=== PATIENT | female | born 1975 | race African-American/Black ===

== ENCOUNTER 2021-12-14 09:40 | Outpatient (CLI) | payer OTHER, SELFPAY ==
--- NOTE | ~2021-12-14 | US_ITS ---
EXAMINATION: US abdomen limited EXAM DATE: 12/14/2021 10:00 INDICATION: Abdominal pain, nausea. TECHNIQUE: Multiple grayscale and Doppler images of the abdomen right upper quadrant were obtained (b y a technologist who performed the scan) and subsequently reviewed. There is no prior study for ronal cheng. FINDINGS: The pancreatic head and body are normal in appearance. The pancreatic tail is not visualized. The l iver has normal echogenicity and contour. There are no focal liver lesions identified. There is no evidence of intrahepatic biliary duct dilation. Portal venous flow was seen in the hepatopedal, nor mal direction and has normal Doppler waveform. No right-sided hydronephrosis. Common bile duct measures 5 mm, which is normal. The gallbladder wall is normal in thickness, with ex pected amount of distention. No sonographic evidence of pericholecystic fluid. There is no cholelit hiases. Technologist performing exam reports patient did not demonstrate sonographic Oliva's sign. Please note that this sign is less reliable in patients who have received pain medication. IMPRESSION: Unremarkable abdominal ultrasound exam. Reviewed, dictated and finalized at location G. [facility]
== END 2021-12-14 09:41 | disposition home or self-care (01) ==
PROVIDERS: PCP Internal Medicine; Visit Provider Internal Medicine
DX: R10.13 Epigastric pain (principal)
CPT/HCPCS: 76705

== ENCOUNTER 2022-07-07 00:39 | Day surgery (SDC) | payer OTHER, SELFPAY ==
[2022-06-30 12:56] VITALS: BMI 32.4
--- NOTE | 2022-06-30 13:05 | PC.NURSE ---
Report to the Outpatient Waiting Room, entrance under the green pavilion located off [facility], at time 0600 on date 07/07/22. OR Time: 0730. Time changes happen often and if your time is changed the preop area will call you the afternoon before. - You and your visitor will be asked to self-screen and do not enter if you have any COVID symptoms. - Only one visitor and NO children visitors are allowed at this time. - The patient visitor is requested to leave or wait in car when not with patient due to restrictions. - A mask is required within the hospital. Patients may have clear liquids (water, carbonated beverages, clear teas, apple juice) until 3 hours prior to surgery with a maximum of 20 ounces. - No food from midnight until time of surgery Take the following medications with a SIP of water the morning of surgery: NONE Medications to discontinue per physician: VITAMINS/SUPPLEMENTS Date to take last dose: 07/03/22 Please no make-up, nail moldovan, hairspray, perfume, deodorant, or body powder the day of surgery. No jewelry (including any body piercings) or valuables the day of surgery, leave them at home. Please take a shower or bath the night before, or the morning of, surgery with an antibacterial soap. Wear comfortable, loose fitting clothing. - Jewelry must be removed prior to entering the operating room. Rings and piercings that are not removed may be cut off. - The hospital will not accept responsibility for valuables. - Please leave all valuables, including medications, at home the day of surgery. If you are going home after surgery, a licensed emergency detail driver must drive you home. - NO public transportation without another adult. - We recommend that an adult stay with you for 24 hours following discharge. - We also recommend that you do not drive, make important decision, drink alcoholic beverages, or take any drugs that were not prescribed by your health care provider for at least 24 hours after your discharge time. Follow any additional instructions given to you from your surgeon. If you or anyone in your household have experienced Covid symptoms in the past week, please notify your surgeon or the nurse liaison at the phone number below for possible testing. Telephone instructions given to PT - DEIDRA FAM and asked if any additional questions and then verbalized understanding. Patient advised to call surgeon office or pre surgery nurse liaison [phone] if any additional questions.
--- NOTE | 2022-07-06 18:28 | WPDANESEPPF ---
Anes - Initial Pre Proc Eval Procedure: Operation Date: 07/07/22 07:30 Proposed Procedures p Right Open Carpal Tunnel Release - Rogers Rodriguez MD Date/Time: 07/06/22 18:28 Surgeon: Rogers Rodriguez MD Pre Op Diagnosis: Right Carpal Tunnel Syndrome Patient Data Age: 47 Gender: F Height: 1.65 m Weight: 88.45 kg Allergies Allergy/AdvReac Type Severity Reaction Status Date / Time No Known Allergies Allergy Verified 06/30/22 12:55 Home Medications Medication Instructions Recorded Confirmed Type cholecalciferol (vitamin D3) 25 25 mcg PO DAILY 06/03/20 06/30/22 History mcg (1,000 unit) capsule metoprolol tartrate 50 mg tablet 50 mg PO DAILY 07/07/21 06/30/22 History (Lopressor) melatonin 10 mg tablet 10 mg PO HS PRN Insomnia 06/30/22 06/30/22 History Patient hx anesthesia problems: none Family hx anesthesia problems: none Results Review: All pre-operative results and documents have been reviewed as part of the pre-operative evaluation. [facility] Past Medical History Medical History (Updated 07/06/22 @ 18:29 by Fletcher Guzman DO) Abdominal pain APC (atrial premature contractions) BMI 28.0-28.9,adult BMI 30.0-30.9,adult Dyslipidemia Exposure to COVID-19 virus Follow up Ganglion cyst Glaucoma Hypertension Numbness and tingling in both hands Pre-diabetes Tinnitus Surgical History Surgical History H/O prior ablation treatment Family History Family History Mother Hypertension Family history of lymphoma Father Family history of dementia Social History Social History Smoking status: Never smoker Alcohol intake: current Drinks per week: 1 Substance use: never Substance use type: does not use Living arrangements: alone Spiritual care concerns: No Anes - Eval Final PreProcedure Day of Procedure 07/06/22 18:28 Patient weight: obese Heart: regular rate and rhythm Lungs: clear to auscultation Airway: Mallampati scale class II Neurological: alert and oriented Last oral intake: >/= 8 hours ASA classification: II Emergent: no Anesthetic plan: proceed Anesthesia type and monitoring: general GIVS and standard monitoring Results Review: All pre-operative results and documents have been reviewed as part of the pre-operative evaluation. Informed Consent: The patient's anesthetic plan and its attendant risks and benefits were discussed with the patient/family/POA. Questions were solicited and answers provided to the satisfaction of the patient/family/POA.
[2022-07-07] MEDS: LACTATED RINGERS 1,000 ML 30 ML IV CONT (06:28)
[2022-07-07 06:29] VITALS: BP 98/51; PULSE 68; RESP 16; TEMP 36.9; O2SAT 99
--- NOTE | 2022-07-07 07:20 | WPDHPUPDATE1 ---
History and Physical Update Update Date/Time: 07/07/22 07:20 History and Physical has been reviewed, including an updated exam of the patient. There are NO changes in the patient's condition. Risks, benefits, and alternatives have been discussed and questions answered. Patient agrees to proceed with procedure.
[2022-07-07] MEDS: LIDO 1%/EPINEPHRINE 1:100,000 50 ML VIAL INFILTRATE (07:51)
[2022-07-07 07:58] VITALS: BP 99/69; PULSE 76; RESP 12; O2SAT 99
--- NOTE | 2022-07-07 08:05 | W.PM.PROC2 ---
Procedure Note - Detailed Date of Procedure 07/07/22 Pre-op Diagnosis Right Carpal Tunnel Syndrome Post-op Diagnosis Same Procedure Performed Right open carpal tunnel release Surgeon Rogers Rodriguez MD Anesthesia MAC Description of Procedure The right carpal tunnel was marked on the patient waiting in the holding area. She was taken to the operating room where she was placed supine on the operating table. Time-out was held confirmed. Extremity was prepped and draped in usual fashion. She was given IV sedation. The site was remarked on the patient's palm and locally infiltrated with 1% lidocaine with epinephrine. The tourniquet was inflated to 250 mmHg. Incision was made as marked. Dissection was carried bluntly through the subcutaneous tissue to the palmar aponeurosis. This and the transverse carpal retinaculum was incised with a 15. Blade. Under 3 point retraction the retinaculum was divided distally and proximally to completely release it. No unusual anatomy was noted. The skin was closed with interrupted 5 0 nylon suture and the tourniquet released. The usual bandage was applied and she was discharged from the operating room stable condition Tourniquet Time 8 Drains No Packing No Pathology None sent Complications No immediate complications Condition Stable Disposition Same day
[2022-07-07 08:20] VITALS: BP 97/67; PULSE 78; RESP 20
[2022-07-07 08:50] VITALS: BP 96/67; PULSE 68; RESP 20
[2022-07-07 09:00] VITALS: BP 102/72; PULSE 68; RESP 20
== END 2022-07-07 09:10 | disposition home or self-care (01) ==
PROVIDERS: PCP Internal Medicine; Visit Provider Plastic Surgery
PROC: (CPT 64721; principal; 2022-07-07 07:30)
DX: G56.01 Carpal tunnel syndrome, right upper limb (principal); I10 Essential (primary) hypertension; E78.5 Hyperlipidemia, unspecified; R73.03 Prediabetes; H40.9 Unspecified glaucoma; E66.9 Obesity, unspecified; Z68.33 Body mass index [BMI] 33.0-33.9, adult
CPT/HCPCS: 64721; A9270; J1940; J2250; J2405; J2704; J3010; J7120

== ENCOUNTER 2022-07-28 02:11 | Day surgery (SDC) | payer OTHER, SELFPAY ==
[2022-07-25 08:53] VITALS: BMI 32.5
--- NOTE | 2022-07-25 09:01 | PC.NURSE ---
Report to the Outpatient Waiting Room, entrance under the green pavilion located off [facility], at time ____929___ on date __07/28/22 . OR Time: ___1129 . Time changes happen often and if your time is changed the preop area will call you the afternoon before. - You and your visitor will be asked to self-screen and do not enter if you have any COVID symptoms. - We encourage only one visitor and NO visitors under age 16 are allowed at this time. Your visitor will receive communication by the phone number that is given day of service. - The patient visitor is requested to social distance or may leave the building when not with patient due to restrictions. - A mask is required within the hospital. Patients may have clear liquids (water, carbonated beverages, clear teas, apple juice) until 3 hours prior to surgery with a maximum of 20 ounces. - No food from midnight until time of surgery - Infants may have breast milk until 4 hours before surgery, formula 6 hours prior to surgery. - Children will be allowed to drink immediately following surgery. If applicable, please bring a bottle or sippy cup to assist with drinking. Juice, water, soda, and popsicles are readily available. For infants on formula, please bring formula the day of surgery. Pacifiers are allowed. Take the following medications with a SIP of water the morning of surgery: ____n/a Medications to discontinue per physician n/a Date to take last dose Please no make-up, nail arabic, hairspray, perfume, deodorant, or body powder the day of surgery. No jewelry (including any body piercings) or valuables the day of surgery, leave them at home. Please take a shower or bath the night before, or the morning of, surgery with an antibacterial soap. Wear comfortable, loose fitting clothing. Children are encouraged to wear pajamas. - Jewelry must be removed prior to entering the operating room. Rings and piercings that are not removed may be cut off. - The hospital will not accept responsibility for valuables. - Please leave all valuables, including medications, at home the day of surgery. If you are going home after surgery, a licensed port cdl a driver must drive you home. - NO public transportation without another adult. - We recommend that an adult stay with you for 24 hours following discharge. - We also recommend that you do not drive, make important decision, drink alcoholic beverages, or take any drugs that were not prescribed by your health care provider for at least 24 hours after your discharge time. For Pediatric surgeries, we recommend two adults accompany the child home. Follow any additional instructions given to you from your surgeon. If you or anyone in your household have experienced Covid symptoms in the past week, please notify your surgeon or the nurse liaison at the phone number below for possible testing. Telephone instructions given to ____patient and asked if any additional questions and then verbalized understanding. Patient advised to call surgeon office or pre surgery nurse liaison [phone] if any additional questions.
--- NOTE | 2022-07-28 07:14 | WPDHPUPDATE1 ---
History and Physical Update Update Date/Time: 07/28/22 07:14 History and Physical has been reviewed, including an updated exam of the patient. There are NO changes in the patient's condition. Risks, benefits, and alternatives have been discussed and questions answered. Patient agrees to proceed with procedure.
[2022-07-28 10:21] VITALS: BP 102/68; PULSE 77; RESP 16; TEMP 37; O2SAT 98
[2022-07-28] MEDS: LACTATED RINGERS 1,000 ML 30 ML IV CONT (10:38)
--- NOTE | 2022-07-28 10:57 | WPDANESEPPF ---
Anes - Initial Pre Proc Eval Procedure: Operation Date: 07/28/22 12:00 Proposed Procedures p Left Open Carpal Tunnel Release - Rogers Rodriguez MD Date/Time: 07/28/22 10:57 Surgeon: Rogers Rodriguez MD Pre Op Diagnosis: left carpal tunnel syndrome Patient Data Age: 47 Gender: F Height: 1.65 m Weight: 90.8 kg Last Vital Signs Temp 37.0 C 07/28/22 10: Pulse 77 07/28/22 10:21 Resp 16 07/28/22 10:21 BP 102/68 07/28/22 10:21 Pulse Ox 98 07/28/22 10:21 O2 Del Method Room Air 07/28/22 10:21 Allergies Allergy/AdvReac Type Severity Reaction Status Date / Time No Known Allergies Allergy Verified 07/28/22 10:06 Home Medications Medication Instructions Recorded Confirmed Type cholecalciferol (vitamin D3) 25 25 mcg PO DAILY 06/03/20 07/25/22 History mcg (1,000 unit) capsule metoprolol tartrate 50 mg tablet 50 mg PO DAILY 07/07/21 07/28/22 History (Lopressor) melatonin 10 mg tablet 10 mg PO HS PRN Insomnia 06/30/22 07/25/22 History hydrocodone 5 mg-acetaminophen 325 1 tablet PO Q6H PRN pain #6 tabs 07/07/22 07/25/22 Rx mg tablet tramadol 50 mg tablet 50 - 100 mg PO Q6H PRN pain #8 tabs 07/07/22 07/25/22 Rx Patient hx anesthesia problems: none Family hx anesthesia problems: none Results Review: All pre-operative results and documents have been reviewed as part of the pre-operative evaluation. [facility] Past Medical History Medical History Abdominal pain APC (atrial premature contractions) BMI 28.0-28.9,adult BMI 30.0-30.9,adult Dyslipidemia Exposure to COVID-19 virus Follow up Ganglion cyst Glaucoma Hypertension Numbness and tingling in both hands Pre-diabetes Tinnitus Surgical History Surgical History H/O prior ablation treatment Family History Family History Mother Hypertension Family history of lymphoma Father Family history of dementia Social History Social History Smoking status: Never smoker Second hand tobacco smoke exposure: No Alcohol intake: current Drinks per week: 2 Alcohol use details: wine Substance use: never Substance use type: does not use Living arrangements: with family Spiritual care concerns: No Anes - Eval Final PreProcedure Day of Procedure 07/28/22 10:57 Patient weight: obese Heart: regular rate and rhythm Lungs: clear to auscultation Airway: Mallampati scale class II Neurological: alert and oriented Last oral intake: >/= 8 hours ASA classification: II Emergent: no Anesthetic plan: proceed Anesthesia type and monitoring: general GIVS and standard monitoring Results Review: All pre-operative results and documents have been reviewed as part of the pre-operative evaluation. Informed Consent: The patient's anesthetic plan and its attendant risks and benefits were discussed with the patient/family/POA. Questions were solicited and answers provided to the satisfaction of the patient/family/POA.
--- NOTE | 2022-07-28 12:07 | SUR.PREOP ---
Discussed delay with patient.
[2022-07-28] MEDS: LIDO 2%/EPINEPHRINE 1:100,000 20 ML VIAL 10 ML INFILTRATE (13:30)
[2022-07-28 13:39] VITALS: BP 93/57; PULSE 76; RESP 16; O2SAT 95
--- NOTE | 2022-07-28 13:48 | W.PM.PROC2 ---
Procedure Note - Detailed Date of Procedure 07/28/22 Pre-op Diagnosis left carpal tunnel syndrome Post-op Diagnosis Same Procedure Performed Left open carpal tunnel release Surgeon Rogers Rodriguez MD Anesthesia MAC Description of Procedure The left carpal tunnel site was marked on the patient's wrist in the holding area. She was then taken to the operating room where she was placed supine on the operating table. She was given a sedation anesthetic. A time-out was held and confirmed. The the left upper extremity was prepped and draped in the usual fashion. The site was remarked for the incision. It was locally infiltrated with 1% lidocaine with epinephrine. The extremity was exsanguinated and the tourniquet inflated to 250 mmHg. The incision was made as marked and dissection was carried bluntly through the subcutaneous tissue to the palmar aponeurosis. This was incised with scissors and the blunt dissection continued to the flexor retinaculum. This was incised with a 15. Blade it was released distally and proximally for complete release. No unusual anatomy was noted. The skin wound was closed with interrupted 5 0 nylon after the tourniquet was released. Some pressure was held on her hand for a few minutes and the usual bandage applied. She is discharged home with instructions in wound care and follow-up. She has a prescription for hydrocodone 8. Sent to her pharmacy. Estimated Blood Loss 3 Drains No Packing No Pathology None sent Complications No immediate complications Condition Stable Disposition Same day
[2022-07-28 14:05] VITALS: BP 106/64; PULSE 77; RESP 16; O2SAT 98
[2022-07-28] MEDS: oxyCODONE HCL (*CRX) 5 MG TAB IR PO (14:28)
[2022-07-28 14:30] VITALS: BP 118/56; PULSE 70; RESP 16
--- NOTE | 2022-07-28 15:41 | SUR.PHASEII ---
late entry. at 1352 this nurse asked kallie allen to get this patient up if she was ready. 15 minutes after her arrival pt was A&Ox4. moving all extremities well. Kallie allen went to get pt up from the stretcher to the recliner. stretcher was locked and close to the recliner. Kallie allen said she sat her up at the side of the recliner and gave her a minute to relax before attempting to transfer. per damir they began to transfer and her right knee started to give out on her and angle slowly assisted her to the floor. Damir called this nurse Amanda to the room where the patient was on the floor on her knees. This nurse asked if the patient was ok and she said she was. This nurse and damir assisted pt to the chair right next to her for her to rest there then we assisted her to the recliner. pt was able to bear weight for ambulating from the chair to the recliner. This nurse then obtained VS which were WNL. pt said that her right knee hurt. pt c/o pain with movement and palpation of the knee. pt said she had this pain since last night when she was working out and using heels. pt said her knee gave out last night like this as well. Denies hitting head or losing LOC. pt did not mention injuries to other areas of her body or to her wrist. pt has hx of arthritis in bilateral knees. no bruising noted in bilateral knees. mild swelling noted in right knee. pt had no complaints of her knees before ambulation. PMS intact. no deformity noted. pt said she had to void. this nurse offered a WC to go tot he restroom in and pt refused. pt ambulated to the bathroom with a little limp, but well unassisted. this nurse elevate her knee on a pillow and placed ice on it. Dr. montero, Dr. peacock, and sherman the manager ccu were informed. plan per Drs. cinthya piedra and follow up with PCP pt informed. Unknown limp or swelling prior to incident.
== END 2022-07-28 15:01 | disposition home or self-care (01) ==
PROVIDERS: PCP Internal Medicine; Visit Provider Plastic Surgery
PROC: (CPT 64721; principal; 2022-07-28 12:00)
DX: G56.02 Carpal tunnel syndrome, left upper limb (principal); E78.5 Hyperlipidemia, unspecified; I10 Essential (primary) hypertension; R73.03 Prediabetes; H40.9 Unspecified glaucoma; E66.9 Obesity, unspecified; Z68.33 Body mass index [BMI] 33.0-33.9, adult
CPT/HCPCS: 64721; A9270; J2250; J2704; J3010; J7120